=== PATIENT | female | born 2000 | race Two or more races ===

== ENCOUNTER → 2025-06-04 | Day surgery (SDC) | payer OTHER ==
[2025-05-29 09:04] LABS: BASO % 0.4 % (0.1-1.2); EOS # 0.15 (0.04-0.54); EOS % 2.1 % (0.7-7.0); LYMPH # 1.89 (1.18-3.74); LYMPH % 26.7 % (19.3-53.1); MEAN PLATELET VOLUME 9.60 fl (9.4-12.4); MONO # 0.37 (0.24-0.82); MONO % 5.2 % (4.7-12.5); NEUT # 4.62 (1.56-6.13); NEUT % 65.5 % (34.0-71.1); RED CELL DISTRIBUTION WIDTH 15.2 % (11.6-14.4)
[2025-05-29 09:12] LABS: URINE APPEARANCE Clear; URINE BILIRRUBIN Negative (NEGATIVE); URINE BLOOD Negative; URINE COLOR Yellow; URINE GLUCOSE Negative (NEGATIVE); URINE KETONE Negative (NEGATIVE); URINE LEUKOCYTE Negative; URINE NITRATE Negative; URINE PROTEIN Negative (NEGATIVE); URINE UROBILINOGEN 0.2 E.U./dl
[2025-05-29 09:14] VITALS: BP 134/88
[2025-05-29 09:16] LABS: URINE BACTERIA 286.6 uL (0.0-1933); URINE EPITHELIAL CELLS 7.0 uL (0.0-38.8); URINE RBC 6.4 uL (0.0-20.8); URINE WBC 9.8 uL (0.0-23.2)
[2025-05-29 09:28] LABS: INR 1.03
[2025-05-29 09:37] LABS: URINE CAST 0.14 uL (0.0-1.40)
[2025-05-29 09:38] LABS: COVID-19 AG NEGATIVE (NEGATIVE)
[2025-05-29 09:48] LABS: ALT/SGPT 42.0 U/L (12-78); AST/SGOT 19.0 U/L (15-37); BILIRUBIN TOTAL 0.29 mg/dL (0.3-1.2); BUN CREA RATIO 23.0 (7.0-25.0); CREATININE SERUM 0.53 mg/dL (0.55-1.02); GFR 139.44; GLOBULINA 3.3 G/DL (2.4-3.5); GLUCOSE FASTING 100.0 mg/dL (65-100); OSMOLALITY SERUM 283.0 MOSM/KG (275-295)
[~2025-06-04] MED LIST: KETOROLAC TROMETHAMINE 30 MG VIAL IV ONE; POVIDONE-IODINE 118 ML BOTT TOP ONE; SUGAMMADEX SODIUM 200 MG/2 ML VIAL IV ONE; THROMBIN,HU/FIBRINOGEN/CALCIUM 10 ML SYRINGE TOP ONE; VISTASEAL DUAL APPICATOR 1 EACH APPL TOP ONE
== END | disposition home or self-care (01) ==
LOC: ADM 05-29 08:00 → CIR.AMB 07:00
PROVIDERS: ATTEND Obstetrics & Gynecology Gynecologic Oncology
DX: D27.0 Benign neoplasm of right ovary (principal)
CPT/HCPCS: 58662; S2900